=== PATIENT | male | born 1940 | race American Indian/Alaskan Native ===

== ENCOUNTER 2018-01-03 16:53 | Emergency (ER) | payer MEDICARE ==
[2018-01-03 17:04] VITALS: BMI 24.5
[2018-01-03 17:09] VITALS: BP 143/89; PULSE 83; RESP 18; TEMP 98.5
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
[2018-01-03 18:46] VITALS: O2SAT 99
== END 2018-01-03 18:46 | disposition home or self-care (01) ==
LOC: ED 16:53
DX: S60.031A Contusion of right middle finger without damage to nail, initial encounter (principal); S56.413A Strain of extensor muscle, fascia and tendon of right middle finger at forearm level, initial encounter; Y08.89XA Assault by other specified means, initial encounter; Y92.410 Unspecified street and highway as the place of occurrence of the external cause